=== PATIENT | male | born 1950 | race Caucasian/White ===

== ENCOUNTER 2017-04-06 15:34 | Emergency (ER) | payer BC ==
--- NOTE | 2017-04-06 18:14 | RAD ---
HISTORY: Left foot pain, trauma COMPARISONS: None VIEWS: 6, Frontal, lateral, and oblique views of the left forefoot with frontal and lateral views of the left foot FINDINGS: BONE DENSITY: Normal. BONES: There is a nondisplaced fracture of the proximal phalanx of the fourth digit. JOINTS: There is osteoarthritis of the first MTP joint. ALIGNMENT: There is no dislocation. SOFT TISSUES: Unremarkable. OTHER FINDINGS: None. IMPRESSION: NONDISPLACED FRACTURE OF THE PROXIMAL PHALANX OF THE FOURTH DIGIT
[2017-04-06 18:42] VITALS: BP 134/89
--- NOTE | 2017-04-06 18:56 | UC ---
Lower Extremity/Ankle HPI - HPI Summary HPI Summary: glass fell on left foot 4th toe causing pain 3 weeks ago he has beverly taped it but pain continues. Naproxen taken occasionally pain is 0-4/10 - History of Current Complaint Chief Complaint: UCLowerExtremity Stated Complaint: TOE INJURY Time Seen by Provider: 04/06/17 17:29 Hx Obtained From: Patient Onset/Duration: Sudden Onset Severity Initially: Mild Severity Currently: Moderate Pain Scale Used: 0-10 Numeric - 4 Aggravating Factor(s): Standing Alleviating Factor(s): Rest Able to Bear Weight: Yes - Risk Factors Gout Risk Factors: Negative DVT Risk Factors: Negative Septic Arthritis Risk Factor: Negative - Allergies/Home Medications Allergies/Adverse Reactions: Allergies Allergy/AdvReac Type Severity Reaction Status Date / Time No Known Allergies Allergy Verified 04/06/17 15:54 PMH/Surg Hx/FS Hx/Imm Hx Previously Healthy: Yes - Surgical History Surgical History: Yes Surgery Procedure, Year, and Place: vocal chord surgery 11/2012 - Social History Alcohol Use: Occasionally Substance Use Type: None Smoking Status (MU): Never Smoked Tobacco Review of Systems Constitutional: Negative All Other Systems Reviewed And Are Negative: Yes Physical Exam Triage Information Reviewed: Yes Appearance: Well-Appearing Vital Signs: Initial Vital Signs Temp 97.9 F 04/06/17 15:50 Pulse 58 04/06/17 15:50 Resp 12 04/06/17 15:50 BP 126/69 04/06/17 15:50 Pulse Ox 99 04/06/17 15:50 Vital Signs Reviewed: Yes Neck exam: Normal Musculoskeletal Exam: Other - tender left 4th toe MP area, no erythema or soft tissue swelling Lower Extremity Course/Dx - Differential Dx/Diagnosis Provider Diagnoses: Toe fracture left 4th Discharge - Discharge Plan Condition: Stable Disposition: HOME Patient Education Materials: Toe Fracture (ED) Referrals: Joe Tse MD [Primary Care Provider] -
== END 2017-04-06 19:05 | disposition home or self-care (01) ==
LOC: UCEAST 15:34
DX: S92.515A Nondisplaced fracture of proximal phalanx of left lesser toe(s), initial encounter for closed fracture (principal); W20.8XXA Other cause of strike by thrown, projected or falling object, initial encounter; Y93.9 Activity, unspecified; Y92.9 Unspecified place or not applicable
CPT/HCPCS: 99212; G0463